=== PATIENT | male | born 1990 | race Caucasian/White ===

== ENCOUNTER 2017-10-28 21:46 | Observation (INO) | payer BC, OTHER, SELFPAY ==
[2017-10-28 22:43] LABS: #Eosinphils 0.1 thou/uL (0.0-0.7); #Lymphocytes 2.5 thou/uL (1.20-3.40); #Monocytes 0.6 thou/uL (0.11-0.59); #Neutrophils 3.9 thou/uL (1.40-6.50); %Basophils 0.7 % (0.0-1.0); %Eosinophils 1.9 % (0.0-10.0); %Lymphocytes 34.9 % (21.0-51.0); %Neutrophils 54.5 % (42.0-75.0); Mean Corpuscular HGB CONC 35.5 g/dL (32.0-36.0); Mean Corpuscular Hemoglobin 31.6 pg (27.0-31.0); Mean Platelet Volume 7.4 fL (7.4-10.4); Platelet Count 200 thou/uL (130-400); RBC Distribution Width 11.6 % (11.5-14.5); Red Blood Cell (RBC) Count 4.74 mill/uL (4.70-6.10); White Blood Cell (WBC) Count 7.1 thou/uL (4.8-10.8)
[2017-10-28 22:52] LABS: Bilirubin Negative (Negative); Blood, Urine Negative (Negative); Clarity CLEAR (Clear); Glucose, Urine (Dipstick) Negative (Negative); Leukocyte Negative (Negative); Nitrite Negative (Negative); Protein, Urine (Dipstick) Negative (Neg-Trace); Urobilinogen 0.2 mg/dL (0.2-1.0); pH, Urine 5.5 (5.0-9.0)
[2017-10-28 22:53] LABS: INR-International Normal Ratio 1.1; PTT 29.9 SEC (22.9-36.1); Prothrombin Time 14.2 SEC (12.0-14.7)
[2017-10-28 23:04] LABS: ALT (SGPT) 18 U/L (8-55); AST (SGOT) 16 U/L (5-34); Albumin 4.7 g/dL (3.5-5.0); Alkaline Phosphatase 115 U/L (40-150); Anion Gap 13 mmol/L (10-20); BUN (Urea Nitrogen) 9 mg/dL (8.9-20.6); Bilirubin, Total 0.4 mg/dL (0.2-1.2); CK (CPK) 131 U/L (30-200); Calc. Creatinine Clearance 0 mL/min (70-130); Calcium 9.5 mg/dL (7.8-10.44); Carbon Dioxide 25 mmol/L (22-29); Chloride 104 mmol/L (98-107); Estimated GFR-MDRD Greater than 90; Globulin 2.9 g/dL (2.4-3.5); Glucose 107 mg/dL (70-105); Potassium 3.5 mmol/L (3.5-5.1); Protein, Total 7.6 g/dL (6.0-8.3); Sodium 138 mmol/L (136-145)
[2017-10-29] MEDS ORDERED: Ondansetron HCl/PF 4 MG/2 ML Vial IVP PRN ×2 (00:23→09:00)
[2017-10-29] MEDS ORDERED: TETANUS AND DIPHTHERIA TOX/PF 0.5 ML DISP.SYRIN IM ONE ×2 (01:00→09:00)
[2017-10-29] MEDS ORDERED: HOLD ALL ANTI-COAGULANTS/ANTI-PLATELETS/NSAIDS PO SCH (01:00)
[2017-10-29] MEDS ORDERED: diphenhydrAMINE 50 MG/ML VIAL IVP PRN ×2 (01:00→09:00)
[2017-10-29 01:09] VITALS: BMI 30.2
--- NOTE | 2017-10-29 01:54 | HP ---
CHIEF COMPLAINT: Snake bite. PRIMARY CARE PHYSICIAN: None. CODE STATUS: FULL code. TIME OF EVALUATION: 12:30 a.m. HISTORY OF PRESENT ILLNESS: This is a 27-year-old male patient with history of health. The patient was in the backyard and suddenly felt a snake bite in his right foot, lateral. The patient has reported some numbness and mild pain in the area. There is no significant extension above the initial markings. No redness, no change in color. The patient has no chest pain or shortness of breath. No severe pain, no nausea, no vomiting. REVIEW OF SYSTEMS: Constitutional: No fever, no chills. Generalized weakness noted. Respiratory: No cough, no sputum production, no shortness of breath. Cardiovascular: No chest pain, palpitation, shortness of breath. Gastrointestinal: No nausea, no vomiting, no diarrhea, no abdominal pain. SPRAYER MACHINE : No dizziness, headache. Not feeling lightheaded. Genitourinary: No burning on urination. Extremities: There is a snake bite on the right foot lateral side. All other systems were reviewed and negative except for the findings mentioned above. PAST MEDICAL HISTORY: History of health. SOCIAL HISTORY: Lives with family. PAST SURGICAL HISTORY: None remarkable. FAMILY HISTORY: Reviewed and noncontributory for current presentation. ALLERGIES: None reported. MEDICATIONS: None reported. PHYSICAL EXAMINATION: VITAL SIGNS: On presentation, the patient had blood pressure 120/75, heart rate 75, oxygen saturation within normal limits. GENERAL APPEARANCE: The patient is alert, oriented, not in acute distress. HEENT: Eyes, normal conjunctivae. Anicteric. Moist oral mucosa. NECK: No JVD. RESPIRATORY: Bilateral air entry. No rales, no wheezing. Symmetric expansion. CARDIOVASCULAR: Normal rate, regular rhythm. No murmurs, no gallop, no edema. ABDOMEN: Soft. Normal bowel sounds. MUSCULOSKELETAL: Baseline range of motion and strength. No tenderness except for the right foot that is mildly tender and numb after the snake bite. SKIN: Warm and intact. No pallor, no rash, no redness, no change in color. NEUROLOGIC: Baseline sensorium. No evidence of any new focal weakness. Baseline speech. Cranial nerves, sensory intact. PSYCHIATRIC: The patient is in good mood. No anxiety. Oriented. Comfortable judgment. LABORATORY DATA: Labs were reviewed. The patient has white count 7.1, hemoglobin 15, MCV 89, platelet count of 200. Coagulation: PT 14.2, INR 1.1, PTT 29.9, fibrinogen 251. Chemistry: Sodium 138, potassium 3.5, chloride 104, carbon dioxide 25, anion gap 13, BUN 9, creatinine 0.89. GFR was normal. Glucose 107, calcium 9.5, total bilirubin 0.4. LFTs are normal. Urine was done and was negative. ASSESSMENT AND PLAN: The patient will be placed in observation with following medical problems: 1. Snake bite on the right foot. The patient has no systemic symptoms, no nausea, no vomiting, no shortness of breath, no abdominal pain.As of now, the patient is stable. We will monitor him for any further symptoms of snake bite poisoning. 2. Deep venous thrombosis prophylaxis. The patient ambulates. [facility]
[2017-10-29 05:21] LABS: #Eosinphils 0.1 thou/uL (0.0-0.7); #Lymphocytes 2.5 thou/uL (1.20-3.40); #Monocytes 0.5 thou/uL (0.11-0.59); #Neutrophils 3.8 thou/uL (1.40-6.50); %Basophils 0.3 % (0.0-1.0); %Eosinophils 2.2 % (0.0-10.0); %Lymphocytes 35.5 % (21.0-51.0); %Neutrophils 55.1 % (42.0-75.0); Hemoglobin 13.9 g/dL (14.0-18.0); Mean Corpuscular HGB CONC 34.1 g/dL (32.0-36.0); Mean Corpuscular Hemoglobin 30.7 pg (27.0-31.0); Mean Corpuscular Volume 90.2 fL (78.0-98.0); Mean Platelet Volume 7.8 fL (7.4-10.4); Platelet Count 171 thou/uL (130-400); RBC Distribution Width 11.8 % (11.5-14.5); Red Blood Cell (RBC) Count 4.51 mill/uL (4.70-6.10); White Blood Cell (WBC) Count 6.9 thou/uL (4.8-10.8)
[2017-10-29 05:47] LABS: INR-International Normal Ratio 1.2; PTT 32.7 SEC (22.9-36.1); Prothrombin Time 15.1 SEC (12.0-14.7)
[2017-10-29 06:09] LABS: Anion Gap 12 mmol/L (10-20); BUN (Urea Nitrogen) 9 mg/dL (8.9-20.6); Calc. Creatinine Clearance 207 mL/min (70-130); Calcium 8.4 mg/dL (7.8-10.44); Carbon Dioxide 22 mmol/L (22-29); Chloride 108 mmol/L (98-107); Estimated GFR-MDRD Greater than 90; Glucose 92 mg/dL (70-105); Potassium 3.7 mmol/L (3.5-5.1); Sodium 138 mmol/L (136-145)
[2017-10-29] MEDS: Sodium Chloride 0.9% 1,000 ML IV SCH ×2 (06:23→17:22)
[2017-10-29] MEDS ORDERED: Morphine 4 MG/ML Carpuject SLOW IVP PRN (09:00)
[2017-10-29 10:00] LABS: INR-International Normal Ratio 1.1; PTT 31.7 SEC (22.9-36.1); Prothrombin Time 14.5 SEC (12.0-14.7)
[2017-10-29] MEDS ORDERED: Crotalidae Polyvlnt Antivenin 4 GM in Sodium Chloride 0.9% 250 ML 250 ML IVPB SCH (10:00)
--- NOTE | 2017-10-29 12:24 | CON ---
DATE OF CONSULTATION: 10/29/2017 We were asked by our [employer] to see the patient. HISTORY OF PRESENT ILLNESS: The patient is a 27-year-old healthy male who was in his backyard when he felt a sharp pain to his right lower extremity. The patient was bit by a snake. He was able to walk on his foot. He was bit once, but today he does state that there is some increased pain trickling up the lateral side of his leg just below the knee. He has a chronically numb right great toe from his training with boot [employer]. Otherwise, no other issues in the foot other than the swelling. PAST MEDICAL HISTORY: Healthy. SOCIAL HISTORY: Nonsmoker. Family is at bedside. SURGERIES: None. ALLERGIES: None. MEDICATIONS: None. REVIEW OF SYSTEMS: Right lower extremity pain and swelling. Rest of review of systems same. PHYSICAL EXAMINATION: GENERAL: Well-nourished male, resting in bed, in no acute distress. Speech clear. Affect pleasant. Answers questions appropriately. Alert and oriented x3. HEENT: Normal exam. NECK: Supple, trachea midline. EXTREMITIES: Upper extremities: Equal size, shape, symmetry, normal bulk and tone. Lower extremities: Left lower extremity is normal shape. Right lower extremity: Definite swelling to the entire right foot, tenderness to palpation of the foot and up to the lateral leg. Palpation and catheterized not cause increased pain, no concerns of DVT. Pulses are palpable on the right lower extremity and/or equal to both lower extremities. He is able to flex and extend his foot. It is painful, but he is able to do without miserable pain. ASSESSMENT: 1. Snake bite, right lower extremity. 2. No symptoms of compartment syndrome currently. PLAN: Continue with medical treatment per [employer]. I explained symptoms of Compartment Syndrome to the patient and . If he has any of these to let us know right away, but currently keep it elevated, ice to area. We will see the patient again if symptoms worsen. CLAUDIO
--- NOTE | 2017-10-29 13:51 | PDOC.EVN ---
Event Note - Event Note Event Note: chart reviewed, patient seen. Will follow.
[2017-10-29 16:50] LABS: INR-International Normal Ratio 1.1; PTT 30.3 SEC (22.9-36.1); Prothrombin Time 14.2 SEC (12.0-14.7)
[2017-10-29 22:14] LABS: #Basophils 0.1 thou/uL (0.0-0.2); #Eosinphils 0.2 thou/uL (0.0-0.7); #Lymphocytes 2.3 thou/uL (1.20-3.40); #Monocytes 0.5 thou/uL (0.11-0.59); #Neutrophils 3.2 thou/uL (1.40-6.50); %Basophils 0.8 % (0.0-1.0); %Eosinophils 3.1 % (0.0-10.0); %Lymphocytes 37.7 % (21.0-51.0); %Monocytes 7.4 % (0.0-10.0); Hemoglobin 14.4 g/dL (14.0-18.0); Mean Corpuscular HGB CONC 35.5 g/dL (32.0-36.0); Mean Corpuscular Hemoglobin 32.2 pg (27.0-31.0); Mean Corpuscular Volume 90.9 fL (78.0-98.0); Mean Platelet Volume 7.4 fL (7.4-10.4); Platelet Count 175 thou/uL (130-400); RBC Distribution Width 11.8 % (11.5-14.5); Red Blood Cell (RBC) Count 4.47 mill/uL (4.70-6.10); White Blood Cell (WBC) Count 6.2 thou/uL (4.8-10.8)
[2017-10-29 22:18] LABS: INR-International Normal Ratio 1.1; Prothrombin Time 14.3 SEC (12.0-14.7)
[2017-10-30] MEDS: Sodium Chloride 0.9% 1,000 ML IV SCH (03:29)
--- NOTE | 2017-10-30 10:11 | PDOC.PN ---
- Subjective Encounter Start Date: 10/30/17 Encounter Start Time: 11:40 Subjective: Swelling and pain markedly improved. No longer tender on thigh or -: calf. Still with moderate TTP right over bite site. Good sensation in foot/ -: toes. Ambulating well and ready to go home. No pain meds needed today. - Objective Resuscitation Status: Resuscitation Status FULL:Full Resuscitation MAR Reviewed: Yes Vital Signs & Weight: Vital Signs (12 hours) Temp Pulse Resp BP BP Pulse Ox 10/30/17 07:50 98.3 F 61 16 10/30/17 07:20 98.3 F 61 16 120/73 97 10/30/17 03:29 98.1 F 57 L 16 125/61 99 10/29/17 22:58 97.4 F L 58 L 15 126/68 98 Weight Weight 223 lb 1.6 oz I&O: 10/29/17 10/30/17 10/31/17 06:59 06:59 06:59 Intake Total 652 1888 360 Output Total 300 3525 Balance 352 -1637 360 Result Diagrams: 10/29/17 21:56 10/29/17 04:58 Phys Exam - Physical Examination Constitutional: NAD HEENT: moist MMs Respiratory: no wheezing, no rales, no rhonchi Cardiovascular: RRR, no significant murmur Gastrointestinal: soft, non-tender, positive bowel sounds edema to right lateral foot, some bruising over the right lat foot, TTP on foot only. Good distal pulses, cap refill, and sensation Neurological: non-focal, normal sensation, moves all 4 limbs Psychiatric: normal affect, A&O x 3 Dx/Plan (1) Snake bite Code(s): W59.11XA - BITTEN BY NONVENOMOUS SNAKE, INITIAL ENCOUNTER Status: Acute - Plan cont current plan of care Patient markedly improved after antivenom yesterday. Low fibrinogen -: resolved, all other labs normal. Swelling and pain receeding. No signs of -: compartment syndrome. Ok to d/c home. Return to work in 2-5 days -: when able to stand, squat, kneel, and crawl as needed for job without -: pain. * . - Discharge Day Encounter end time: 11:55
[2017-10-30 11:49] VITALS: BP 119/68; TEMP 98.1
--- NOTE | 2017-10-31 00:23 | DIS ---
PRIMARY CARE PHYSICIAN: None. REASON FOR ADMISSION: Snake bite. DIAGNOSES ON DISCHARGE: Copperhead snake bite with envenomation, status post antivenom. PROCEDURES: None. CONSULTATIONS: Orthopedic surgery, Ced Sharma PA-C PERTINENT LABORATORY DATA: Fibrinogen dropped to 224 up to 269 at discharge. Remainder of labs unre markable. SUMMARY OF HOSPITAL COURSE: This is a 27-year-old man without any past medical history, who was bitt en by a copperhead on his right lateral foot that is about 1-foot long snake, a juvenile. He had no systemic symptoms just had pain at the site and swelling along with some numbness. The pain and swel ling increased and spread up first his induced calf with severe pain in his calf and up into his thig h and skilled nursing to his thigh. He had been put an observation in the hospital and was given antivenom w ith the worsening of symptoms. Overnight, he had significant improvement in his symptoms. He has no t had any pain medicine today. His swelling has receded down to his foot. He does have tenderness i nside of his foot and little bit of bruising there. He has been ambulating well and is ready to be g o home. Lab work initially had some mild abnormalities in his fibrinogen, but that resolved. DISCHARGE MANAGEMENT: Discharged home. FOLLOWUP: Follow up with primary care doctor as needed. ACTIVITIES: As tolerated. DIET: Regular diet. The patient has been given warnings to return if he has worsening or progressive swelling, pain, or l oss of sensation to his foot. DISCHARGE MEDICATIONS: Tramadol 25 mg 4 times a day as needed for pain, 15 tablets dispensed.
== END 2017-10-30 12:16 | disposition home or self-care (01) ==
LOC: ERS 21:46 → 2SW 23:18
PROVIDERS: ADMIT Hospitalist; ATTEND Hospitalist
DX: T63.061A Toxic effect of venom of other North and South American snake, accidental (unintentional), initial encounter (principal)
CPT/HCPCS: 36415; 80048; 80053; 81003; 82550; 85025; 85384; 85610; 85730; 86850; 86900; 86901; 93005; 96360; 96361; 96365; 96375; 96376; G0378; J0840; J2270; J7050